=== PATIENT | female | born 1970 | race Caucasian/White ===

== ENCOUNTER 2016-04-10 16:36 | Inpatient (IN) | payer OTHER ==
[~2016-04-10] VITALS: Ht 165.1 cm; Wt 94.3 kg
[~2016-04-10 16:36] MED LIST: BACTRIM,SEPT1 TABLET PO; BIOTIN 5000MCG PO; CYCLOBENZAPRINE10 MG PO; CYMBALTA20 MG PO; ENDOCET 7.5-321 EACH PO; IBUPROFEN200 M1 PO; NAFCIL 2 G2 GM/100 M IV; NAPROSYN500 MG PO; NORCO 7.5/321 TABLET PO; ROBAXIN500 MG PO; [UNRECOGNIZED DRUG - OTHER] BOTH NARES
[2016-04-10 17:32] LABS: HEMATOCRIT 37.4 % (36.0-46.0); MCH 29.3 PG (29.0-34.0); MCV 86.2 FL (83-99); MEAN PLAT.VOLUME 10.4 uM^3 (9.5-12.4); PLATELET COUNT 248 K/uL (156-360); RBC DIS.WIDTH-CV 13.5 % (11.8-14.6); RBC DIS.WIDTH-SD 41.5 % (39-53); RED BLOOD COUNT 4.34 M/uL (3.80-5.20)
[2016-04-10 17:39] LABS: WHITE BLOOD COUNT 12.4 K/uL (4.1-10.2)
[2016-04-10 17:53] LABS: CHLORIDE 105 mEq/L (99-109); POTASSIUM 4.3 mEq/L (3.7-5.4); SODIUM 139 mEq/L (136-147)
[2016-04-10 17:55] LABS: GLUCOSE 125 mg/dL (70-99)
[2016-04-10 17:56] LABS: ANION GAP 12 MEQ/L (2-14)
[2016-04-10 17:57] LABS: TOTAL BILIRUBIN 0.6 mg/dL (0.0-1.0)
[2016-04-10 17:58] LABS: ALKALINE PHOSPHATASE 62 IU/L (3-129)
[2016-04-10 17:59] LABS: GFR ESTIMATE (CALCULATED) 51 mL/min/
[2016-04-10 18:00] LABS: UREA NITROGEN (BUN) 24 mg/dL (9-23)
[2016-04-10 18:11] LABS: QUANTITATIVE HCG < 4.0 MIU/ML
[2016-04-10] MEDS ORDERED: EXCEDRIN MIGRA1 EAC3 PO (18:13)
[2016-04-10 18:29] LABS: ADD MIUA? YES; BILIRUBIN NEGATIVE; BLOOD SMALL; COLOR YELLOW ((YELLOW)); GLUCOSE (STRIP) NEGATIVE; KETONES 5; LEUKOCYTES LARGE; NITRITE POSITIVE; PROTEIN (STRIP) 100; SPECIFIC GRAVITY 1.017 (1.000-1.030); UROBILINOGEN 0.2 MG/DL (0.2-1.0)
[2016-04-10 19:25] LABS: EPITHELIAL CELLS 1+ /HPF; RED BLOOD CELLS RARE /HPF (0-5); WHITE BLOOD CELLS 40-50 /HPF (0-5)
[2016-04-10 19:26] LABS: BACTERIA 1+ /HPF; CASTS NONE SEEN /LPF; CRYSTALS NONE SEEN; MUCUS NONE SEEN /LPF; UCUL ADDED? NO
[2016-04-10 20:53] LABS: EOSINOPHIL (%) 0.1 % (0-5); IMMATURE GRANULOCYTE (%) 0.2 % (0.0-0.7); IMMATURE GRANULOCYTE COUNT 0.2 K/uL; LYMPHOCYTE COUNT 0.5 K/uL (1.0-2.8); MONOCYTE (%) 4.8 % (3-12); MONOCYTE COUNT 0.6 K/uL (0-0.8); NEUTROPHIL (%) 91.1 % (45-76); NEUTROPHIL COUNT 11.1 K/uL (1.8-6.4)
[2016-04-10] MEDS ORDERED: PROTONIX20 MG PO (21:57)
[2016-04-10] MEDS ORDERED: BIOTIN1000 MCG PO (21:58)
[2016-04-10] MEDS ORDERED: AFRIN,GENASAL D15 ML BOTH NARES (21:58)
[2016-04-11 01:19] VITALS: BP 95/54
[2016-04-11 03:48] VITALS: BP 131/69
[2016-04-11 07:02] VITALS: BP 104/60
[2016-04-11 07:06] LABS: HEMATOCRIT 34.3 % (36.0-46.0); MCH 28.4 PG (29.0-34.0); MCHC 32.4 G/DL (30.0-36.0); MCV 87.7 FL (83-99); MEAN PLAT.VOLUME 10.9 uM^3 (9.5-12.4); PLATELET COUNT 208 K/uL (156-360); RBC DIS.WIDTH-CV 13.8 % (11.8-14.6); RBC DIS.WIDTH-SD 44.2 % (39-53); RED BLOOD COUNT 3.91 M/uL (3.80-5.20)
[2016-04-11 07:12] LABS: ANION GAP 11 MEQ/L (2-14); CHLORIDE 106 MEQ/L (99-109); GFR ESTIMATE (CALCULATED) > 59 mL/min/; GLUCOSE 96 mg/dL (70-99); POTASSIUM 3.9 MEQ/L (3.7-5.4); SAMPLE HEMOLYSIS CHECK 0; SAMPLE ICTERIC CHECK 0; SAMPLE LIPEMIA CHECK 0; SODIUM 138 MEQ/L (136-147); UREA NITROGEN (BUN) 17 mg/dL (9-23)
[2016-04-11 07:20] LABS: WHITE BLOOD COUNT 8.5 K/uL (4.1-10.2)
[2016-04-11 11:10] VITALS: BP 98/59
[2016-04-11 15:42] VITALS: BP 106/63
[2016-04-11 23:53] VITALS: BP 106/71
[2016-04-12 07:04] LABS: EOSINOPHIL (%) 0.1 % (0-5); HEMATOCRIT 34.9 % (36.0-46.0); IMMATURE GRANULOCYTE (%) 0.1 % (0.0-0.7); LYMPHOCYTE COUNT 1.2 K/uL (1.0-2.8); MCH 28.8 PG (29.0-34.0); MCHC 32.4 G/DL (30.0-36.0); MCV 88.8 FL (83-99); MEAN PLAT.VOLUME 11.1 uM^3 (9.5-12.4); MONOCYTE (%) 12.8 % (3-12); NEUTROPHIL COUNT 5.9 K/uL (1.8-6.4); PLATELET COUNT 169 K/uL (156-360); RBC DIS.WIDTH-SD 45.7 % (39-53); RED BLOOD COUNT 3.93 M/uL (3.80-5.20); WHITE BLOOD COUNT 8.1 K/uL (4.1-10.2)
[2016-04-12 07:23] LABS: ANION GAP 9 MEQ/L (2-14); CHLORIDE 110 MEQ/L (99-109); GFR ESTIMATE (CALCULATED) > 59 mL/min/; GLUCOSE 87 mg/dL (70-99); MAGNESIUM 1.9 mg/dl (1.3-2.7); POTASSIUM 3.8 MEQ/L (3.7-5.4); SAMPLE HEMOLYSIS CHECK 0; SAMPLE ICTERIC CHECK 0; SAMPLE LIPEMIA CHECK 0; SODIUM 141 MEQ/L (136-147); UREA NITROGEN (BUN) 9 mg/dL (9-23)
[2016-04-12 07:56] VITALS: BP 146/85
[2016-04-12 12:00] VITALS: BP 113/71
[2016-04-12 16:00] VITALS: BP 122/76
[2016-04-12 23:40] VITALS: BP 132/79
[2016-04-13 07:51] LABS: EOSINOPHIL (%) 0.5 % (0-5); HEMATOCRIT 34.9 % (36.0-46.0); IMMATURE GRANULOCYTE (%) 0.2 % (0.0-0.7); LYMPHOCYTE COUNT 1.1 K/uL (1.0-2.8); MCH 27.8 PG (29.0-34.0); MCHC 31.8 G/DL (30.0-36.0); MCV 87.5 FL (83-99); MEAN PLAT.VOLUME 10.8 uM^3 (9.5-12.4); MONOCYTE (%) 11.3 % (3-12); MONOCYTE COUNT 0.6 K/uL (0-0.8); NEUTROPHIL (%) 68.7 % (45-76); NEUTROPHIL COUNT 3.8 K/uL (1.8-6.4); PLATELET COUNT 219 K/uL (156-360); RBC DIS.WIDTH-CV 13.7 % (11.8-14.6); RBC DIS.WIDTH-SD 44.1 % (39-53); RED BLOOD COUNT 3.99 M/uL (3.80-5.20); WHITE BLOOD COUNT 5.6 K/uL (4.1-10.2)
[2016-04-13 08:07] LABS: ANION GAP 9 MEQ/L (2-14); CHLORIDE 108 MEQ/L (99-109); GFR ESTIMATE (CALCULATED) > 59 mL/min/; GLUCOSE 95 mg/dL (70-99); MAGNESIUM 1.9 mg/dl (1.3-2.7); POTASSIUM 3.9 MEQ/L (3.7-5.4); SAMPLE HEMOLYSIS CHECK 0; SAMPLE ICTERIC CHECK 0; SAMPLE LIPEMIA CHECK 0; SODIUM 140 MEQ/L (136-147); UREA NITROGEN (BUN) 8 mg/dL (9-23)
[2016-04-13 08:15] VITALS: BP 137/88
[2016-04-13] MEDS ORDERED: BACTRIM,SEPT1 TABLET PO (11:03)
== END 2016-04-13 12:14 | disposition home or self-care (01) | DRG 872 ==
LOC: EME 16:36 → 2EAST 23:24 → EDOF 23:24 → 2EAST 04-11 00:59
PROVIDERS: Hospitalist; Internal Medicine
DX: A41.9 Sepsis, unspecified organism (principal); N10 Acute pyelonephritis; Z16.12 Extended spectrum beta lactamase (ESBL) resistance; G89.29 Other chronic pain; M54.9 Dorsalgia, unspecified; E78.5 Hyperlipidemia, unspecified; E66.9 Obesity, unspecified; Z68.34 Body mass index [BMI] 34.0-34.9, adult
CPT/HCPCS: 36415; 74177; 80048; 80053; 81003; 83605; 83735; 84443; 84702; 85025; 85027; 85610; 85730; 87040; 87077; 87081; 87086; 87186; 99281; 99285; J0696; J1170; J1335; J1885; J2405; J7030; J7050

== ENCOUNTER → 2017-02-05 | Outpatient (CLI) | payer OTHER ==
[~2017-02-05] MED LIST changes: +AFRIN,GENASAL D15 ML BOTH NARES; +BIOTIN1000 MCG PO; +EXCEDRIN MIGRA1 EAC3 PO; +PROTONIX20 MG PO
== END | disposition home or self-care (01) ==
LOC: CDC 12:11
DX: Z01.810 Encounter for preprocedural cardiovascular examination (principal); M48.061 Spinal stenosis, lumbar region without neurogenic claudication; I45.10 Unspecified right bundle-branch block; J98.4 Other disorders of lung
CPT/HCPCS: 93000

== ENCOUNTER 2017-02-15 22:02 | Inpatient (IN) | payer OTHER ==
[~2017-02-15] VITALS: Ht 165.1 cm; Wt 79.2 kg
[~2017-02-15 22:02] MED LIST changes: +CRANBERRY250 MG PO
[2017-02-16 07:27] VITALS: BP 118/77
[2017-02-16 14:31] VITALS: BP 116/71
== END 2017-02-16 17:24 | disposition home or self-care (01) | DRG 460 ==
LOC: ENRESERV 22:02 → CANRESERV 22:02 → 2SOUTH 02-16 05:32 → ENRESERV 02-16 12:47 → 3EAST 02-16 14:00
PROC: 01NB0ZZ Release Lumbar Nerve, Open Approach (ICD-10-PCS; principal; 2017-02-16)
PROC: 0SG00AJ Fusion of Lumbar Vertebral Joint with Interbody Fusion Device, Posterior Approach, Anterior Column, Open Approach (ICD-10-PCS; principal; 2017-02-16)
DX: M48.061 Spinal stenosis, lumbar region without neurogenic claudication (principal); M54.16 Radiculopathy, lumbar region
CPT/HCPCS: 72100; 76000; 86850; 86900; 86901; C1713; J0131; J0690; J1100; J1170; J1885; J2250; J2405; J2710; J3010; J3370; J3480; Q0175; S0020